=== PATIENT | male | born 1930 | race Two or more races ===

== ENCOUNTER 2019-08-26 20:51 | Inpatient (IN) | payer BC, MEDICARE ==
[~2019-08-26] VITALS: Ht 182.9 cm; Wt 84.4 kg
[2019-08-26] MEDS ORDERED: ASPIRIN 81MG TABLET PO ONE (22:30)
[2019-08-26] MEDS ORDERED: FUROSEMIDE 40MG/4ML VIAL IV ONE (22:30)
[2019-08-26 22:52] LABS: BASOPHILS % 0.2 % (0.0-2.0); EOSINOPHILS % 1.4 % (0.0-5.0); HEMATOCRIT. 42.2 % (42.0-52.0); HEMOGLOBIN. 13.8 g/dL (14.0-18.0); LYMPHOCYTES % 25.5 % (20.0-50.0); MEAN CORPUSCULAR HEMOGLOBIN 32.2 pg (28.0-32.0); MEAN CORPUSCULAR VOLUME 98.4 fL (80.0-94.0); MEAN PLATELET VOLUME 9.1 fl (7.4-10.4); MONOCYTES % 6.4 % (2.0-8.0); NEUTROPHILS % 66.5 % (40.0-76.0); PLATELET 180 x1000/uL (130-400); RED BLOOD CELL COUNT 4.29 mill/uL (4.7-6.1); RED CELL DISTRIBUTION WIDTH 16.2 % (11.6-14.6)
[2019-08-26 22:57] LABS: CHLORIDE 106 mEq/L (98-107)
[2019-08-27] MEDS ORDERED: HYDROCODONE/ACETAMINOPHEN 5/325MG TABLET PO PRN
[2019-08-27] MEDS ORDERED: CLONIDINE 0.1MG TABLET PO PRN
[2019-08-27] MEDS ORDERED: ACETAMINOPHEN 325MG TABLET PO PRN
[2019-08-27] MEDS ORDERED: MORPHINE SULFATE 2 MG/ML CPJ (NOT FOR IM USE) IV PRN
[2019-08-27] MEDS ORDERED: ONDANSETRON HCL 4MG/2ML INJ IV PRN
[2019-08-27] MEDS ORDERED: IPRATROPIUM/ALBUTEROL 0.5-3(2.5)MG/3ML NEB NEB PRN
[2019-08-27] MEDS: THIAMINE HCL 100MG TABLET PO SCH ×2 (01:18→10:54)
[2019-08-27 06:13] LABS: BASOPHILS % 0.8 % (0.0-2.0); EOSINOPHILS % 1.3 % (0.0-5.0); HEMATOCRIT. 38.9 % (42.0-52.0); HEMOGLOBIN. 12.9 g/dL (14.0-18.0); LYMPHOCYTES % 35.4 % (20.0-50.0); MEAN CORPUSCULAR HEMOGLOBIN 32.7 pg (28.0-32.0); MEAN CORPUSCULAR VOLUME 98.4 fL (80.0-94.0); MEAN PLATELET VOLUME 8.8 fl (7.4-10.4); MONOCYTES % 9.4 % (2.0-8.0); NEUTROPHILS % 53.1 % (40.0-76.0); PLATELET 173 x1000/uL (130-400); RED BLOOD CELL COUNT 3.95 mill/uL (4.7-6.1); RED CELL DISTRIBUTION WIDTH 15.6 % (11.6-14.6)
[2019-08-27 06:18] LABS: CHLORIDE 106 mEq/L (98-107)
[2019-08-27 06:24] LABS: PHOSPHORUS 3.2 mg/dL (2.5-4.9)
[2019-08-27 06:27] LABS: CREATINE KINASE 93 IU/L (39-308)
[2019-08-27 06:29] LABS: CREATINE KINASE MB FRACTION 1.7 ng/mL (0.5-3.6)
[2019-08-27] MEDS: FUROSEMIDE 40MG/4ML VIAL IV SCH ×2 (08:12→08:48)
[2019-08-27] MEDS ORDERED: DEXTROSE 50% WATER 50ML SYRINGE IV PRN (08:30)
[2019-08-27] MEDS: ENOXAPARIN 40MG/0.4ML SYR SUBCUT SCH (08:49)
[2019-08-27] MEDS: BLOOD SUGAR DIAGNOSTIC STRIP TEST SCH ×4 (08:49→20:16)
[2019-08-27] MEDS: ASPIRIN 81MG EC TABLET PO SCH (08:49)
[2019-08-27] MEDS: INSULIN LISPRO (MEDIUM DOSE) 100 UNITS/ML SUBCUT SCH ×4 (09:08→20:19)
[2019-08-27 09:32] VITALS: BP 158/74
[2019-08-27 12:10] VITALS: BP 134/78
[2019-08-27] MEDS ORDERED: OMEP20TA15 PO (13:42)
[2019-08-27] MEDS ORDERED: FURO-151 MT (13:42)
[2019-08-27] MEDS ORDERED: PIOG30TA10 MT (13:42)
[2019-08-27] MEDS ORDERED: METF-416 MT (13:42)
[2019-08-27] MEDS ORDERED: ASPI-1497 PO (13:42)
[2019-08-27] MEDS ORDERED: FURO-151 PO (13:42)
[2019-08-27] MEDS ORDERED: ROSU5TAB PO (13:42)
[2019-08-27] MEDS: CARVEDILOL 6.25 MG TABLET PO SCH ×2 (13:50→20:20)
[2019-08-27] MEDS: AMLODIPINE 2.5MG TABLET PO SCH (13:51)
[2019-08-27] MEDS ORDERED: MAGNESIUM 2 G PREMIX 50 ML IV SCH (14:00)
[2019-08-27 15:56] VITALS: BP 120/78
[2019-08-27 16:15] LABS: CREATINE KINASE MB FRACTION 2.5 ng/mL (0.5-3.6)
[2019-08-27] MEDS: FUROSEMIDE 100MG/10ML VIAL IV SCH (17:05)
[2019-08-27] MEDS: MAGNESIUM OXIDE 400MG TABLET PO SCH (17:05)
[2019-08-27 20:00] VITALS: BP 127/72
[2019-08-27] MEDS: ATORVASTATIN CALCIUM 10MG TABLET PO SCH (20:19)
[2019-08-28] VITALS: BP 130/78
[2019-08-28 04:00] VITALS: BP 142/83
[2019-08-28] MEDS: BLOOD SUGAR DIAGNOSTIC STRIP TEST SCH ×4 (06:09→20:32)
[2019-08-28] MEDS: INSULIN LISPRO (MEDIUM DOSE) 100 UNITS/ML SUBCUT SCH ×4 (06:09→20:32)
[2019-08-28] MEDS: OMEPRAZOLE 20MG CAPSULE EXTENDED RELEASE PO SCH (06:25)
[2019-08-28] MEDS: FUROSEMIDE 100MG/10ML VIAL IV SCH ×2 (06:25→18:24)
[2019-08-28 06:53] LABS: BASOPHILS % 0.7 % (0.0-2.0); EOSINOPHILS % 1.7 % (0.0-5.0); HEMATOCRIT. 36.8 % (42.0-52.0); HEMOGLOBIN. 12.5 g/dL (14.0-18.0); LYMPHOCYTES % 37.3 % (20.0-50.0); MEAN CORPUSCULAR HEMOGLOBIN 32.8 pg (28.0-32.0); MEAN CORPUSCULAR VOLUME 96.8 fL (80.0-94.0); MEAN PLATELET VOLUME 8.8 fl (7.4-10.4); MONOCYTES % 9.1 % (2.0-8.0); NEUTROPHILS % 51.2 % (40.0-76.0); PLATELET 182 x1000/uL (130-400); RED CELL DISTRIBUTION WIDTH 15.6 % (11.6-14.6)
[2019-08-28 06:59] LABS: CHLORIDE 104 mEq/L (98-107)
[2019-08-28 08:00] VITALS: BP 139/65
[2019-08-28] MEDS: METFORMIN HCL 500MG TABLET PO SCH ×2 (09:15→18:23)
[2019-08-28] MEDS: PIOGLITAZONE 15MG TABLET PO SCH (09:15)
[2019-08-28] MEDS: ASPIRIN 81MG EC TABLET PO SCH (09:15)
[2019-08-28] MEDS: CARVEDILOL 6.25 MG TABLET PO SCH ×2 (09:16→20:31)
[2019-08-28] MEDS: AMLODIPINE 2.5MG TABLET PO SCH (09:16)
[2019-08-28] MEDS: ENOXAPARIN 40MG/0.4ML SYR SUBCUT SCH (09:21)
[2019-08-28] MEDS: THIAMINE HCL 100MG TABLET PO SCH (09:21)
[2019-08-28] MEDS: MAGNESIUM OXIDE 400MG TABLET PO SCH ×2 (09:21→18:23)
[2019-08-28 12:00] VITALS: BP 120/75
[2019-08-28] MEDS ORDERED: BENZONATATE 100MG CAPSULE PO PRN (12:00)
[2019-08-28 16:00] VITALS: BP 126/76
[2019-08-28 20:00] VITALS: BP 105/62
[2019-08-28] MEDS: ATORVASTATIN CALCIUM 10MG TABLET PO SCH (20:31)
[2019-08-29] VITALS: BP 102/51
[2019-08-29 04:00] VITALS: BP 117/63
[2019-08-29] MEDS: FUROSEMIDE 100MG/10ML VIAL IV SCH (06:22)
[2019-08-29] MEDS: INSULIN LISPRO (MEDIUM DOSE) 100 UNITS/ML SUBCUT SCH ×2 (06:22→12:50)
[2019-08-29] MEDS: OMEPRAZOLE 20MG CAPSULE EXTENDED RELEASE PO SCH (06:22)
[2019-08-29] MEDS: BLOOD SUGAR DIAGNOSTIC STRIP TEST SCH ×2 (06:22→12:20)
[2019-08-29 06:39] LABS: BASOPHILS % 0.4 % (0.0-2.0); EOSINOPHILS % 1.7 % (0.0-5.0); HEMATOCRIT. 38.4 % (42.0-52.0); HEMOGLOBIN. 12.9 g/dL (14.0-18.0); LYMPHOCYTES % 43.7 % (20.0-50.0); MEAN CORPUSCULAR HEMOGLOBIN 32.6 pg (28.0-32.0); MEAN CORPUSCULAR VOLUME 96.8 fL (80.0-94.0); MONOCYTES % 8.4 % (2.0-8.0); NEUTROPHILS % 45.8 % (40.0-76.0); PLATELET 186 x1000/uL (130-400); RED BLOOD CELL COUNT 3.96 mill/uL (4.7-6.1); RED CELL DISTRIBUTION WIDTH 15.6 % (11.6-14.6)
[2019-08-29 06:42] LABS: CHLORIDE 103 mEq/L (98-107)
[2019-08-29] MEDS: CARVEDILOL 6.25 MG TABLET PO SCH (09:05)
[2019-08-29] MEDS: AMLODIPINE 2.5MG TABLET PO SCH (09:05)
[2019-08-29] MEDS: PIOGLITAZONE 15MG TABLET PO SCH (09:05)
[2019-08-29] MEDS: THIAMINE HCL 100MG TABLET PO SCH (09:05)
[2019-08-29] MEDS: METFORMIN HCL 500MG TABLET PO SCH ×2 (09:06→15:56)
[2019-08-29] MEDS: ENOXAPARIN 40MG/0.4ML SYR SUBCUT SCH (09:06)
[2019-08-29] MEDS: MAGNESIUM OXIDE 400MG TABLET PO SCH ×2 (09:06→15:56)
[2019-08-29] MEDS: ASPIRIN 81MG EC TABLET PO SCH (09:06)
[2019-08-29] MEDS ORDERED: LISINOPRIL 2.5MG TABLET PO SCH (11:45)
[2019-08-29] MEDS ORDERED: FURO-151 MT (11:48)
[2019-08-29] MEDS ORDERED: LISI2.5T47 PO (11:48)
[2019-08-29] MEDS ORDERED: COR6 PO (11:48)
[2019-08-29] MEDS ORDERED: AMLO2.5T45 PO (11:48)
[2019-08-29 12:00] VITALS: BP 113/65
[2019-08-29 14:55] VITALS: BP 116/62
[2019-08-29 16:00] VITALS: BP 93/55
[2019-08-29] MEDS ORDERED: FUROSEMIDE 40MG TABLET PO SCH (21:00)
== END 2019-08-29 18:00 | disposition home or self-care (01) | DRG 292 ==
LOC: ER 20:51 → 6WST 22:29 → EDBD 22:29 → ENRESERV 08-27 08:47
PROVIDERS: ADMIT Internal Medicine Nephrology; ATTEND Internal Medicine Nephrology
DX: I11.0 Hypertensive heart disease with heart failure (principal); E44.1 Mild protein-calorie malnutrition; I42.9 Cardiomyopathy, unspecified; H91.91 Unspecified hearing loss, right ear; H54.62 Unqualified visual loss, left eye, normal vision right eye; I50.43 Acute on chronic combined systolic (congestive) and diastolic (congestive) heart failure; E78.5 Hyperlipidemia, unspecified; E11.9 Type 2 diabetes mellitus without complications; D64.9 Anemia, unspecified; M19.90 Unspecified osteoarthritis, unspecified site; E83.42 Hypomagnesemia; I27.20 Pulmonary hypertension, unspecified; E78.00 Pure hypercholesterolemia, unspecified; Z79.899 Other long term (current) drug therapy; Z82.49 Family history of ischemic heart disease and other diseases of the circulatory system; Z79.82 Long term (current) use of aspirin; Z79.84 Long term (current) use of oral hypoglycemic drugs; Z68.25 Body mass index [BMI] 25.0-25.9, adult
CPT/HCPCS: 36415; 71045; 80048; 80053; 82550; 82553; 82962; 83735; 83880; 84100; 84484; 85025; 93005; 93306; 99285; J1650; J1815; J1940; J3475